=== PATIENT | female | born 1975 | race Caucasian/White ===

== ENCOUNTER 2018-10-27 21:26 | Emergency (ER) | payer OTHER ==
[~2018-10-27 21:26] MED LIST: HYDR4TAB4 PO; OXYC10TA59 PO
--- NOTE | 2018-10-27 22:06 | NUR ---
CALLED PT TO BE TRIAGED, NO ANSWER
--- NOTE | 2018-10-28 00:30 | NUR ---
CALLED PT TO BE TRIAGED, NO ANSWER
== END 2018-10-28 00:31 | disposition left against medical advice (07) ==
LOC: ER 21:26
DX: Z53.21 Procedure and treatment not carried out due to patient leaving prior to being seen by health care provider (principal)